=== PATIENT | male | born 1995 | race Caucasian/White ===

== ENCOUNTER → 2017-04-16 | Outpatient (CLI) | payer BC ==
--- NOTE | 2017-04-16 11:30 | DIAGNOSTIC IMAGING REPORT ---
RIGHT WRIST MRI HISTORY: RIGHT WRIST PAIN TECHNIQUE: Multiplanar multisequence MRI of the wrist was performed without contrast. COMPARISON STUDY: None. FINDINGS: There is indistinctness and abnormal signal at the ulnar attachments of the triangular fibrocartilage suggestive of a small partial tear. The radial attachments appear intact. There is minimal thickening and increased signal at the extensor carpi ulnaris tendon at the level of the distal ulna. This is consistent with a mild tendinopathy. No fracture or dislocation within the wrist. No joint effusion. The median nerve is intact. The flexor tendons are normal in course, caliber, and signal intensity. No significant soft tissue swelling. IMPRESSION: 1. Probable small partial tear at the ulnar attachments of the triangular fibrocartilage. 2. Mild extensor carpi ulnaris tendinopathy. Electronically signed by: Fahad Roper M.D. 04/16/2017 11:29 AM Dictated Date/Time: 04/16/2017 11:12 AM
== END | disposition home or self-care (01) ==
LOC: C.MRI 09:56
PROVIDERS: ATTEND Family Medicine Sports Medicine
DX: M25.531 Pain in right wrist (principal)

== ENCOUNTER 2017-05-07 18:31 | Emergency (ER) | payer BC ==
[2017-05-07 18:48] VITALS: TEMP 36.9
--- NOTE | 2017-05-07 19:58 | EMERGENCY ROOM VISIT NOTE ---
History Report prepared by Mauro: Kym Mccoy Under the Supervision of: Dr. Ramo Mcdermott D.O. First contact with patient: 19:48 Chief Complaint: VOMITING Stated Complaint: VOMIT Nursing Triage Summary: vomiting all day. History of Present Illness The patient is a 22 year old male who presents to the Emergency Room with complaints of sudden vomiting beginning this afternoon. The patient states that he napped from 1000 to 1300 today when he began to vomit until 1800. He reports that he tried to drink water and eat but that he continued to vomit. He states that he did vomit upon arrival. The patient states that he has been taking deeper breaths because it "feels better. He denies having abdominal pain and headaches. He also denies having dark and bloody stools. The patient states that he was using a Juul recently. He denies being around anyone sick and also denies recent travel. He denies any active medical problems. Source of History: patient Onset: this afternoon Position: other (global) Quality: other (vomiting ) Timing: other (sudden) Associated Symptoms: No headache, No abdominal pain Note: also denies: black and bloody stool Review of Systems See HPI for pertinent positives & negatives. A total of 10 systems reviewed and were otherwise negative. Past Medical & Surgical Medical Problems: (1) No active medical problems Family History Hypertension Social History Smoking Status: Never Smoker Smokeless Tobacco Use: No Drug Use: none Housing Status: lives alone Occupation Status: [employer] Current/Historical Medications Scheduled Ondasetron Odt (Zofran Odt), 4 MG SL Q6H Pantoprazole (Protonix), 40 MG PO DAILY Physical Exam Vital Signs Date Time Temp Pulse Resp B/P (MAP) Pulse Ox O2 Delivery O2 Flow Rate FiO2 05/07/17 22:24 93 116/63 99 05/07/17 21:19 74 14 116/62 05/07/17 20:38 88 05/07/17 18:48 36.9 101 16 121/67 99 Room Air Physical Exam GENERAL: Patient is awake, alert, and in no acute distress. Patient is resting comfortably and showing no signs of anxiety EYES: The conjunctivae are clear. The pupils are round and reactive. EARS, NOSE, MOUTH AND THROAT: The nose is without any evidence of any deformity. Mucous membranes are moist tongue is midline NECK: The neck is nontender and supple. RESPIRATORY: Normal respiratory effort is noted there is no evidence of wheezing rhonchi or rales CARDIOVASCULAR: Regular rate and rhythm noted there no murmurs rubs or gallops normal S1 normal S2 GASTROINTESTINAL: The abdomen is soft. Bowel sounds are present in all quadrants. Abdomen is nontender MUSCULOSKELETAL/EXTREMITIES: There is no evidence of gross deformity full range of motion is noted in the hips and shoulders SKIN: There is no obvious evidence of any rash. There are no petechiae, pallor or cyanosis noted. NEUROLOGIC: Patient is awake alert and oriented x3 strength is symmetric patellar reflexes are 2+ bilaterally Medical Decision & Procedures ER Provider Diagnostic Interpretation: Radiology results as stated below per my review and radiologist interpretation: PA CHEST WITH ABDOMINAL SERIES CLINICAL HISTORY: Generalized abdominal pain. FINDINGS: A PA chest radiograph is obtained. No prior studies are available for comparison at the time of dictation. The cardiomediastinal silhouette is unremarkable. The lungs and pleural spaces are clear. No pneumothorax is seen. The bony thorax is grossly intact. Supine and erect abdominal radiographs are obtained. No prior studies are available for comparison at the time of dictation. There is a nonobstructed abdominal bowel gas pattern. No evidence of intraperitoneal free air is seen. There are no abnormal abdominal calcifications. The lumbosacral spine and bony pelvis appear intact. IMPRESSION: 1. No active disease in the chest. 2. Nonobstructed abdominal bowel gas pattern. Electronically signed by: Matt Montanez M.D. 05/07/2017 9:03 PM Dictated Date/Time: 05/07/2017 9:02 PM SOFT TISSUES NECK 2 VIEWS CLINICAL HISTORY: Sore throat. FINDINGS: AP and lateral views of the soft tissues of the neck are presented. No prior studies are available for comparison at the time of dictation. The pharyngeal soft tissues are normal in appearance. The airway is widely patent. The epiglottic shadow is normal. No radiodense foreign body is seen. The prevertebral/retropharyngeal soft tissues are normal. The imaged cervical spine appears intact. The imaged apical lung parenchyma appears clear. IMPRESSION: Unremarkable radiographic assessment of the soft tissues of the neck. Electronically signed by: Matt Montanez M.D. 05/07/2017 9:02 PM Dictated Date/Time: 05/07/2017 9:01 PM Laboratory Results 05/07/17 20:00 Red Blood Count 5.05, Mean Corpuscular Volume 86.1, Mean Corpuscular Hemoglobin 29.9, Mean Corpuscular Hemoglobin Concent 34.7, Mean Platelet Volume 11.6, Neutrophils (%) (Auto) 86.5, Lymphocytes (%) (Auto) 5.9, Monocytes (%) (Auto) 7.3, Eosinophils (%) (Auto) 0.0, Basophils (%) (Auto) 0.1, Neutrophils # (Auto) 11.27, Lymphocytes # (Auto) 0.77, Monocytes # (Auto) 0.95, Eosinophils # (Auto) 0.00, Basophils # (Auto) 0.01 05/07/17 20:00 Test 05/07/17 20:00 White Blood Count 13.03 K/uL (4.8-10.8) Red Blood Count 5.05 M/uL (4.7-6.1) Hemoglobin 15.1 g/dL (14.0-18.0) Hematocrit 43.5 % (42-52) Mean Corpuscular Volume 86.1 fL (80-100) Mean Corpuscular Hemoglobin 29.9 pg (25-34) Mean Corpuscular Hemoglobin Concent 34.7 g/dl (32-36) Platelet Count 179 K/uL (130-400) Mean Platelet Volume 11.6 fL (7.4-10.4) Neutrophils (%) (Auto) 86.5 % Lymphocytes (%) (Auto) 5.9 % Monocytes (%) (Auto) 7.3 % Eosinophils (%) (Auto) 0.0 % Basophils (%) (Auto) 0.1 % Neutrophils # (Auto) 11.27 K/uL (1.4-6.5) Lymphocytes # (Auto) 0.77 K/uL (1.2-3.4) Monocytes # (Auto) 0.95 K/uL (0.11-0.59) Eosinophils # (Auto) 0.00 K/uL (0-0.5) Basophils # (Auto) 0.01 K/uL (0-0.2) RDW Standard Deviation 41.3 fL (36.4-46.3) RDW Coefficient of Variation 13.1 % (11.5-14.5) Immature Granulocyte % (Auto) 0.2 % Immature Granulocyte # (Auto) 0.03 K/uL (0.00-0.02) Anion Gap 11.0 mmol/L (3-11) Estimated GFR () 96.4 Estimated GFR (Non- 83.2 BUN/Creatinine Ratio 16.6 (10-20) Calcium Level 9.2 mg/dl (8.5-10.1) Total Bilirubin 0.4 mg/dl (0.2-1) Direct Bilirubin 0.1 mg/dl (0-0.2) Aspartate Amino Transf (AST/SGOT) 23 U/L (15-37) Alanine Aminotransferase (ALT/SGPT) 29 U/L (12-78) Alkaline Phosphatase 50 U/L (45-117) Total Protein 8.1 gm/dl (6.4-8.2) Albumin 4.5 gm/dl (3.4-5.0) Lipase 85 U/L (73-393) Laboratory results per my review. Medications Administered Medications (Trade) Dose Ordered Sig/Nancy Route Start Time Stop Time Status Last Admin Dose Admin Sodium Chloride 1,000 ml @ 999 mls/hr Q1H1M STAT IV 05/07/17 20:03 05/07/17 21:03 DC 05/07/17 20:03 999 MLS/HR Ondansetron HCl (Zofran Inj) 4 mg NOW STAT IV 05/07/17 20:03 05/07/17 20:05 DC 05/07/17 20:37 4 MG Pantoprazole Sodium 40 mg/ Syringe 10 ml @ 5 mls/min NOW ONCE IV 05/07/17 20:15 05/07/17 20:16 DC 05/07/17 20:37 5 MLS/MIN ED Course 1950: The patient was evaluated in room A3. A complete history and physical examination were performed. 2002: Ordered Zofran Inj 4 mg IV, Sodium Chloride 1,000 ml @ 999 mls/hr IV. 2014: Ordered Pantoprazole Sodium 40 mg/Syringe 10 ml @ 5 mls/min IV. 5: Upon reevaluation, the patient is resting. I discussed the results and treatment plan with him. He verbalized agreement of the treatment plan. He was discharged home. Medical Decision Differential diagnosis: Etiologies such as gastroenteritis, food borne illness, infections, appendicitis , diverticulitis, inflammatory bowel disease, obstruction, GI bleed, biliary pathology, as well as others were entertained. Nursing notes reviewed. The patient is a 22-year-old male who presented to emergency department for evaluation of nausea and vomiting. The patient had multiple episodes of emesis. Upon arrival to the emergency department his physical exam was not consistent with an acute surgical abdomen. He was reevaluated multiple times. He was treated with IV fluids as well as proton pump inhibitor. He was encouraged to continue all medications as prescribed and drink plenty clear liquids. He was also encouraged to call [facility] to schedule a follow-up appointment. He was also encouraged to return to the emergency apartment immediately if symptoms change worsen or the need arises. Medication Reconcilliation Current Medication List: was personally reviewed by me Blood Pressure Screening Patient's blood pressure: Normal blood pressure Impression Primary Impression: Nausea & vomiting Additional Impression: Sorethroat Scribe Attestation The scribe's documentation has been prepared under my direction and personally reviewed by me in its entirety. I confirm that the note above accurately reflects all work, treatment, procedures, and medical decision making performed by me. Departure Information Dispostion Home / Self-Care Prescriptions Pantoprazole (Protonix) 40 Mg Tab 40 MG PO DAILY, #30 TAB Prov: Ramo Mcdermott, DO 05/07/17 Ondasetron Odt (ZOFRAN ODT) 4 Mg Tab 4 MG SL Q6H for Nausea, #15 TAB Prov: Ramo Mcdermott, DO 05/07/17 Referrals No Doctor, Assigned (PCP) [facility] Forms HOME CARE DOCUMENTATION FORM, IMPORTANT VISIT INFORMATION Patient Instructions ED Nausea Vomiting, My [facility] Additional Instructions Follow-up with [facility] as soon as possible. Drink plenty clear liquids. Continue all medications as prescribed. Return to the emergency Department immediately if symptoms change worsen or the need arises. Problem Qualifiers Primary Impression: Nausea & vomiting Vomiting type: unspecified Vomiting Intractability: non-intractable Qualified Codes: R11.2 - Nausea with vomiting, unspecified
[2017-05-07] MEDS ORDERED: SODIUM CHLORIDE 0.9% 1000ML 1,000 ML IV STA (20:03)
[2017-05-07] MEDS ORDERED: ONDANSETRON INJ 2 MG/ML 2 ML VIAL IV STA (20:03)
[2017-05-07] MEDS ORDERED: PANTOprazole INJ 40 MG in SYRINGE 0 ML IV ONE (20:15)
[2017-05-07 20:28] LABS: BASO % 0.1 %; BASO ABS # 0.01 K/uL (0-0.2); COMPLETE YES; HEMATOCRIT 43.5 % (42-52); IG% 0.2 %; LYMPH % 5.9 %; LYMPH ABS # 0.77 K/uL (1.2-3.4); MEAN CELL VOLUME 86.1 fL (80-100); MEAN CORPUSCULAR HEMOGLOBIN 29.9 pg (25-34); MEAN CORPUSCULAR HGB CONC 34.7 g/dl (32-36); MEAN PLATELET VOLUME 11.6 fL (7.4-10.4); MONO % 7.3 %; NEUT % 86.5 %; PLATELET COUNT 179 K/uL (130-400); RED BLOOD COUNT 5.05 M/uL (4.7-6.1); WHITE BLOOD COUNT 13.03 K/uL (4.8-10.8)
[2017-05-07 20:52] LABS: ALT/SGPT 29 U/L (12-78); AST/SGOT 23 U/L (15-37); BLOOD UREA NITROGEN 21 mg/dl (7-18); BUN/CREATININE RATIO 16.6 (10-20); CALCIUM 9.2 mg/dl (8.5-10.1); CARBON DIOXIDE 26 mmol/L (21-32); CHLORIDE 102 mmol/L (98-107); CREATININE 1.24 mg/dl (0.60-1.40); GLUCOSE 81 mg/dl (70-99); POTASSIUM 3.8 mmol/L (3.5-5.1); SODIUM 139 mmol/L (136-145)
[2017-05-07 20:54] LABS: ALKALINE PHOSPHATASE 50 U/L (45-117)
--- NOTE | 2017-05-07 21:03 | DIAGNOSTIC IMAGING REPORT ---
SOFT TISSUES NECK 2 VIEWS CLINICAL HISTORY: Sore throat. FINDINGS: AP and lateral views of the soft tissues of the neck are presented. No prior studies are available for comparison at the time of dictation. The pharyngeal soft tissues are normal in appearance. The airway is widely patent. The epiglottic shadow is normal. No radiodense foreign body is seen. The prevertebral/retropharyngeal soft tissues are normal. The imaged cervical spine appears intact. The imaged apical lung parenchyma appears clear. IMPRESSION: Unremarkable radiographic assessment of the soft tissues of the neck. Electronically signed by: Matt Montanez M.D. 05/07/2017 9:02 PM Dictated Date/Time: 05/07/2017 9:01 PM
--- NOTE | 2017-05-07 21:04 | DIAGNOSTIC IMAGING REPORT ---
PA CHEST WITH ABDOMINAL SERIES CLINICAL HISTORY: Generalized abdominal pain. FINDINGS: A PA chest radiograph is obtained. No prior studies are available for comparison at the time of dictation. The cardiomediastinal silhouette is unremarkable. The lungs and pleural spaces are clear. No pneumothorax is seen. The bony thorax is grossly intact. Supine and erect abdominal radiographs are obtained. No prior studies are available for comparison at the time of dictation. There is a nonobstructed abdominal bowel gas pattern. No evidence of intraperitoneal free air is seen. There are no abnormal abdominal calcifications. The lumbosacral spine and bony pelvis appear intact. IMPRESSION: 1. No active disease in the chest. 2. Nonobstructed abdominal bowel gas pattern. Electronically signed by: Matt Montanez M.D. 05/07/2017 9:03 PM Dictated Date/Time: 05/07/2017 9:02 PM
[2017-05-07] MEDS ORDERED: ONDA4TAB10 SL (21:46)
[2017-05-07] MEDS ORDERED: PANT40TA PO (21:46)
[2017-05-07 22:24] VITALS: BP 116/63; PULSE 93; O2SAT 99
== END 2017-05-07 22:25 | disposition home or self-care (01) ==
LOC: C.EDB 18:32 → C.EDA 22:25
DX: R11.2 Nausea with vomiting, unspecified (principal); J02.9 Acute pharyngitis, unspecified; Z82.49 Family history of ischemic heart disease and other diseases of the circulatory system